=== PATIENT | female | born 1990 | race Caucasian/White ===

== ENCOUNTER 2018-07-06 20:50 | Emergency (ER) | payer SELFPAY ==
[2018-07-06 20:52] VITALS: BP 118/71; PULSE 84; RESP 20; TEMP 36.3; O2SAT 99; BMI 28.5
[2018-07-06 21:46] VITALS: O2SAT 100
--- NOTE | 2018-07-06 22:23 | RAD_ITS ---
STUDY: X-RAY CHEST REASON FOR EXAM: Female, 28 years old. Cough and cold symptoms. TECHNIQUE: PA and lateral views of the chest. COMPARISON: Prior comparison studies are not available for review at this time. FINDINGS: Cardiac monitoring leads are present. The lungs are clear and expanded. There is no demonstrated pleural abnormality. Normal size heart. Normal mediastinum and dolly. Normal visualized pulmonary arteries. Normal visualized aortic arch and descending thoracic aorta. Normal visualized thoracic spine. Normal visualized ribs, clavicles, and shoulders. There is no demonstrated abnormality of the visualized soft tissue structures of the upper abdomen. RAD/Chest PA and Lateral IMPRESSION: No radiographic evidence of acute cardiopulmonary disease. Electronically Signed: Allie Quesada MD at 23:19 EST , Service support ,
--- NOTE | 2018-07-06 22:26 | ED.DCSUM_ITS ---
- ER Visit Summary Date of Service: 07/06/18 Chief Complaint: Cough and chest pain History of Present Illness: The patient is a 28 F who presents for 1 week of cough, now with chest pain since last night. Patient states she has had a productive cough with nasal congestion and URI symptoms for 1 week. Last night she began having chest pressure and tightness, worse with coughing and moving around. Today she feels mildly short of breath. She continues to have the productive cough. Denies fever, nausea, vomiting, diarrhea. She has been using [id number] cough syrup for symptoms. No Tylenol Motrin. No medical history. No history of asthma. She is a smoker. Physical Examination: Vital signs: afebrile, hemodynamically stable, no hypoxia on room air General: well nourished, well developed, in no distress Skin: warm, dry, no rash, no pallor HEENT: normocephalic and atraumatic; PERRL, EOMI, moist mucous membranes, nasal voice, frequent sniffling, moist cough, no lymphadenopathy, neck is supple with full active range of motion, no meningismus Cardiovascular: regular rate and rhythm without murmurs, no peripheral edema, 2+ pulses all distal extremities Respiratory: No increased work of breathing, lungs have diffuse wheezing on the loudest in the anterior upper daly and rhonchi noted in the left lower posterior field. Abdominal: Abdomen is soft, nontender with normoactive bowel sounds, no guarding or rebound, no masses MSK: Moves all extremities, no deformities, normal strength Neuro: Awake and alert, oriented ?4. No facial droop, sensation and motor function intact and symmetric Test Results: Clinical Impression(s) from Imaging Studies Chest X-Ray 07/06/18 22:23 IMPRESSION: No radiographic evidence of acute cardiopulmonary disease. Electronically Signed: Allie Quesada MD at 23:19 EST , Service support , Medications Given Discontinued Medications Albuterol Sulfate (Proair Hfa (Sp) Surgery/Vent Pts) 0 puff INHALATION .TAKE HOME MED ONE Stop: 07/06/18 23:51 Last Admin: 07/07/18 00:35 Dose: 1 bottle Albuterol/Ipratropium (Duoneb) 3 ml INHALATION X1 ONE Stop: 07/06/18 22:24 Last Admin: 07/06/18 23:09 Dose: 3 ml Prednisone () 40 mg PO X1 ONE Stop: 07/06/18 23:51 Last Admin: 07/07/18 00:35 Dose: 40 mg Emergency Department Course and Treatment: Patient is having progressive respiratory illness, now either bronchitis or possible pneumonia. She was given an albuterol treatment for the diffuse wheezing. Chest x-ray was performed and showed no infiltrates. After the DuoNeb treatment, patient states her breathing felt much better. Her wheezing had improved. She is a smoker and is having a reactive airway component to her current respiratory infection. That she was given an albuterol inhaler to use at home and was started on prednisone. No antibiotics indicated at this time, she has no obvious infiltrates and has only had symptoms for 1 week. Patient agreed with this plan, was offered Tessalon Perles, but stated she was fine with her [id number] medications. Discharged home with follow-up with a primary care doctor. Treatment Plan: [] Disposition: [] Impression: Acute bronchitis, reactive airway disease This note was generated with [employer] dictation software. It may contain incorrect words, spelling, and punctuation that were not noted in review of the chart prior to signing ED Disposition - Plan for ED Patient: Disposition: Home or Assisted Living Chief Complaint: Cough Instructions: ED Bronchitis Asthmatic, ED Upper Resp Infec No Abx Tx Prescriptions: RX: Albuterol Inhaler [Ventolin Hfa] 2 puff INHALATION Q4H PRN PRN #1 inhaler PRN Reason: Wheezing RX: Prednisone 40 mg PO DAILY #20 tab Referrals: Yang Mckeon MD [STAFF PHYSICIAN] - 1 Week if not improving Care Physician,No Primary [Primary Care Provider] - Additional Instructions: Continue your cough medicine as needed. Take the prednisone as prescribed and use the albuterol as needed to help with lung inflammation and wheezing. If you have any worsening of your condition or any new concerning symptoms, please return immediately to the emergency department for another evaluation.
[2018-07-06 23:09] VITALS: PULSE 77; RESP 18
[2018-07-06] MEDS: Ipratropium/Albuterol Sulfate 3 ML AMPUL.NEB INHALATION (23:09)
--- NOTE | 2018-07-06 23:52 | ED.DEP ---
ED Disposition - Plan for ED Patient: Disposition: Home or Assisted Living Chief Complaint: Cough Instructions: ED Bronchitis Asthmatic, ED Upper Resp Infec No Abx Tx Prescriptions: Albuterol Inhaler [Ventolin Hfa] 2 puff INHALATION Q4H PRN PRN #1 inhaler PRN Reason: Wheezing Prednisone 40 mg PO DAILY #20 tab Referrals: Care Physician,No Primary [Primary Care Provider] - Yang Mckeon MD [STAFF PHYSICIAN] - 1 Week if not improving Additional Instructions: Continue your cough medicine as needed. Take the prednisone as prescribed and use the albuterol as needed to help with lung inflammation and wheezing. If you have any worsening of your condition or any new concerning symptoms, please return immediately to the emergency department for another evaluation.
[2018-07-07] MEDS: predniSONE 20 MG Tablet 40 MG PO (00:35)
[2018-07-07 00:38] VITALS: PULSE 105; RESP 18; O2SAT 99
== END 2018-07-07 00:38 | disposition home or self-care (01) ==
PROVIDERS: Emergency Provider Emergency Medicine
DX: J20.9 Acute bronchitis, unspecified (principal); J45.909 Unspecified asthma, uncomplicated; F17.200 Nicotine dependence, unspecified, uncomplicated
CPT/HCPCS: 71046; 94640; 94664; 99283; A4216

== ENCOUNTER → 2019-08-01 17:55 | Outpatient (CLI) | payer MEDICAID, SELFPAY ==
[2019-08-01 12:23] VITALS: BMI 28.5
[2019-08-01 17:57] LABS: Mucous, Urine 0 SEEN /hpf (<or=2+)
[2019-08-01 18:21] LABS: Color, Urine Yellow (Yellow); Glucose, Dipstick Normal (Normal); Ketone-Dipstick Negative (Negative); Leukocyte Esterase-Dipstick 100 /ul (Negative); Nitrite-Dipstick Negative (Negative); Occult Blood-Urine 25 /ul (Negative); Protein-Dipstick Negative (Negative); Specific Gravity, Urine 1.015 (1.002-1.030); Urine Bilirubin Dipstick Negative (Negative); Urine Clarity Sl. Cloudy (Clear); Urine Urobilinogen Normal (Normal)
[2019-08-01 18:46] LABS: Bacteria RARE /hpf (None Seen); Red Blood Cells-Urine 0-5 SEEN /hpf (0-5); Squamous Epithelial Cells - UA 0-5 SEEN /hpf (5-10); White Blood Cells 5-10 SEEN /hpf (0-5)
== END ==
LOC: LAB 17:55 → LABSPEC 08-03 09:01
PROVIDERS: Referring Provider Physician Assistant; Visit Provider Physician Assistant
DX: R30.0 Dysuria (principal); R10.9 Unspecified abdominal pain
CPT/HCPCS: 81001; 87086; 87088

== ENCOUNTER 2020-01-17 11:41 | Emergency (ER) | payer MEDICAID, SELFPAY ==
[2019-08-14 18:02] VITALS: BMI 28.5
[2020-01-17 11:41] VITALS: BP 144/100; PULSE 84; RESP 18; TEMP 36.6; O2SAT 98; BMI 29.7
--- NOTE | 2020-01-17 11:56 | CT_ITS ---
STUDY: CT BRAIN WITHOUT CONTRAST REASON FOR EXAM: Female, 30 years old. Headache. Prior trauma. RADIATION DOSAGE (If Supplied By Facility): CTDIvol = ( 44.99 ) mGy, DLP = ( 779.24 ) mGycm TECHNIQUE: Transaxial CT imaging of the brain was performed without administration of intravenous contrast material. Individualized dose optimization techniques were used for this CT. COMPARISON: None. FINDINGS: There is no acute bleed or infarct. There are normal white matter tracts. The ventricles are normal in configuration. There is no hydrocephalus. The visualized paranasal sinuses are clear. The mastoid air cells are well aerated. There is no skull fracture. CT/Brain/Head without Contrast IMPRESSION: No acute intracranial abnormality. Electronically Signed: Chas Duarte, at 13:10 EDT Tel , Service support ,
--- NOTE | 2020-01-17 11:57 | CT_ITS ---
STUDY: CT CERVICAL SPINE WITHOUT CONTRAST REASON FOR EXAM: Female, 30 years old. Headache. Trauma. RADIATION DOSAGE (If Supplied By Facility): CTDIvol = ( 25.58 ) mGy, DLP = ( 508.05 ) mGycm TECHNIQUE: High resolution transaxial imaging was performed without contrast material. Sagittal and coronal images were reconstructed. Individualized dose optimization techniques were used for this CT. COMPARISON: None available. FINDINGS: There is no evidence of fracture or dislocation in the cervical spine. The dens is intact. There is straightening of the normal cervical lordosis which may be due to paraspinal muscle spasm or may be positional in nature. The vertebral body heights and disc spaces are well-maintained. There are no significant degenerative changes. The visualized paraspinal soft tissues are within normal limits. There is a 6 mm nodule in the left upper lobe. A dedicated chest CT is recommended. CT/Spine Cervical without Contras IMPRESSION: No fracture or dislocation in the cervical spine. Straightening of the normal cervical lordosis which may be due to paraspinal muscle spasm or may be positional in nature. 6 mm nodule in the left upper lobe. Dedicated chest CT is recommended. Electronically Signed: Chas Duarte, at 13:12 EDT Tel , Service support ,
--- NOTE | 2020-01-17 11:57 | ED.VIS.GEN ---
History of Present Illness Chief Complaint: Headache Informant: Patient Onset: Days - 4 days Context: Gradual Onset Timing: Waxes and wanes Current Severity: Moderate Maximum Severity: Moderate Narrative: Patient presents with headache for the last 4 days after an injury. She was splitting wood. She states they were using a large wench to lift the large pieces of wood. The counterweight on the when she swung and hit her in the left sabianist. She stumbled back and did not fall to the floor. She has had a headache since that time. She has some mild neck tenderness as well. She does report some light sensitivity and nausea. She has been taking Tylenol and Excedrin Migraine without significant improvement. Past Medical History - Allergies and Home Meds Allergies/Adverse Reactions: Allergies No Known Allergies Allergy (Verified 01/17/20 11:44) Primary Care Physician: Care Physician,No Primary [Primary Care Provider] - Past Medical History: None Lives: With Family Smoking Status: Current every day smoker Review of Systems General: Denies: Chills, Fever Eyes: Denies: Visual changes - bilaterally ENT: Denies: Bilateral ear pain Cardiovascular: Denies: Chest pain Respiratory: Denies: Dyspnea, Cough Gastrointestinal: Reports: Nausea. Denies: Abdominal pain, Vomiting, Diarrhea Musculoskeletal: Reports: Neck pain. Denies: Extremity Pain Neurological: Reports: Headache. Denies: Weakness, Parasthesia Hematologic: Denies: Easy bruising, Easy bleeding Allergy: Denies: Uticaria Physical Exam Vital Signs/Narrative: Vital Signs Temp Pulse Resp BP Pulse Ox 01/17/20 11:41 97.9 F 84 18 144/100 H 98 Inital Vital Signs reviewed: Yes General: Well nourished, Well developed Head: Normocephalic ENT: Moist mucous membranes Neck: Supple, - - No midline cervical tenderness. Cardiovascular: Regular rate, Regular rhythm Respiratory: No distress, CTA bilaterally Abdomen: Soft, Nontender Extremities: Nontender Skin: Normal color Neurological: Alert, Oriented x3, Normal Strength, Normal Sensation Psychological: Normal affect Diagnostic/Tx/Re-eval Impressions Brain CT 01/17/20 11:56 IMPRESSION: No acute intracranial abnormality. Electronically Signed: Chas Duarte, at 13:10 EDT Tel , Service support , Cervical Spine CT 01/17/20 11:57 IMPRESSION: No fracture or dislocation in the cervical spine. Straightening of the normal cervical lordosis which may be due to paraspinal muscle spasm or may be positional in nature. 6 mm nodule in the left upper lobe. Dedicated chest CT is recommended. Electronically Signed: Chas Duarte, at 13:12 EDT Tel , Service support , 01/17/20 11:56 Brain/Head without Contrast [CT] Stat 01/17/20 11:57 CT Cervical [Spine Cervical without Contras] [CT] Stat - Medical Decision Making Patient was given Toradol, Reglan, Benadryl, and IV fluids. On repeat evaluation she is resting comfortably. CT results are discussed with her. She was given instructions for concussion. ED Disposition - Plan for ED Patient: Disposition: Home or Assisted Living Diagnosis: Concussion Instructions: ED Concussion Referrals: Mahendra Estrada MD [NON-STAFF] - As Needed
[2020-01-17] MEDS: 0.9% Normal Saline 1,000 ML 999 ML IV (12:27)
[2020-01-17] MEDS: DiphenhydrAMINE 50 MG/ML Syringe 25 MG IV (12:28)
[2020-01-17] MEDS: Ketorolac 30 MG/ML Syringe IV (12:28)
[2020-01-17] MEDS: Metoclopramide 10 MG/2 ML Vial IV (12:28)
== END 2020-01-17 14:16 | disposition home or self-care (01) ==
PROVIDERS: Emergency Provider Emergency Medicine
DX: S06.0X0A Concussion without loss of consciousness, initial encounter (principal); M54.2 Cervicalgia; W20.8XXA Other cause of strike by thrown, projected or falling object, initial encounter; Y93.89 Activity, other specified; Y92.9 Unspecified place or not applicable; Y99.9 Unspecified external cause status; R91.1 Solitary pulmonary nodule; F17.200 Nicotine dependence, unspecified, uncomplicated
CPT/HCPCS: 70450; 72125; 96361; 96374; 96375; 99283; J7030; A4216

== ENCOUNTER → 2021-03-28 | Outpatient (CLI) | payer MEDICAID, SELFPAY | END | disposition home or self-care (01) | LOC: LABSPEC 03-29 08:32 | PROVIDERS: Referring Provider Physician Assistant Surgical; Visit Provider Physician Assistant Surgical | DX: R50.9 Fever, unspecified (principal) | CPT/HCPCS: 87635; U0005; U0003 ==